=== PATIENT | female | born 2000 | race Caucasian/White ===

== ENCOUNTER 2021-10-11 19:34 | Observation (INO) | payer OTHER ==
[2021-10-11 19:59] VITALS: BMI 15.9
[2021-10-11] MEDS ORDERED: LACTATED RINGERS SOLUTION 1000 ML INFUS.BAG IV ONE ×2 (20:14→20:25)
[2021-10-11 20:24] LABS: HCG,QUALITATIVE URINE Negative
[2021-10-11 20:26] LABS: EPI CELLS >36 /uL (0-25.1); HYALINE CASTS 15 /uL (0-3.1); PH,URINE 7.5 (5.0-8.0); URINE APPEARANCE CLEAR; URINE BACTERIA 97 /uL (0-1359); URINE BILIRUBIN NEGATIVE (NEGATIVE); URINE COLOR YELLOW; URINE GLUCOSE (UA) NEGATIVE (NEGATIVE); URINE KETONE TRACE (NEGATIVE); URINE LEUK ESTERASE 1+ (NEGATIVE); URINE NITRITE NEGATIVE (NEGATIVE); URINE PROTEIN NEGATIVE (NEGATIVE); URINE RBC 10 /uL (0-23.9); URINE UROBILINOGEN 0.2 mg/dL (0.2-1.0); URINE WBC 56 /uL (0-25.8)
[2021-10-11] MEDS ORDERED: ACETAMINOPHEN 1000 MG/100 ML VIAL IVPB ONE (21:15)
[2021-10-11] MEDS ORDERED: ACETAMINOPHEN INJECTION 100 ML IVPB ONE (21:15)
[2021-10-11 21:19] LABS: BASO % 0.4 % (0-2.0); EOS % 0.6 % (0-4.5); HEMATOCRIT 38.5 % (32.4-45.2); HEMOGLOBIN 12.6 GM/dL (10.7-15.3); LYMPH % 8.8 % (8-40); MCH 26.9 pg (25.7-33.7); MCHC 32.8 g/dl (32.0-36.0); MONO % 5.5 % (3.8-10.2); NEUT % 84.7 % (42.8-82.8); PLATELET COUNT 276 10^3/uL (134-434); RDW 17.6 % (11.6-15.6)
[2021-10-11 21:30] LABS: CHLORIDE 105 mmol/L (98-107); SODIUM 138 mmol/L (136-145)
[2021-10-11 21:32] LABS: CALCIUM 9.1 mg/dL (8.5-10.1)
[2021-10-11 21:33] LABS: ALBUMIN 4.3 g/dl (3.4-5.0); ANION GAP 9 MMOL/L (8-16); BLOOD UREA NITROGEN 14.9 mg/dL (7-18); CO2 25 mmol/L (21-32); GLUCOSE,RANDOM 96 mg/dL (74-106)
[2021-10-11 21:36] LABS: CREATININE 0.8 mg/dL (0.55-1.3); SGOT/AST 16 U/L (15-37); SGPT/ALT 19 U/L (13-61)
[2021-10-11 21:37] LABS: TOT PROT 8.4 g/dl (6.4-8.2)
[2021-10-11 21:38] LABS: BILIRUBIN,TOTAL 0.5 mg/dL (0.2-1)
[2021-10-11 21:39] LABS: ALK PHOS 95 U/L (45-117); INR 1.21 (0.83-1.09); PROTHROMBIN TIME (PATIENT) 13.6 SEC (9.7-13.0)
[2021-10-11 21:41] LABS: ACTIVATED PTT 24.8 SECONDS (25.2-36.5)
[2021-10-12] MEDS ORDERED: CEFTRIAXONE 1 GM in DEXTROSE 5%-WATER - 50 ML IVPB ONE (00:14)
[2021-10-12 01:07] LABS: PHOSPHOROUS 3.6 mg/dL (2.5-4.9)
[2021-10-12] MEDS ORDERED: CEFTRIAXONE 1 GM/50 ML BAG ONE (01:34)
[2021-10-12] MEDS: SODIUM CHLORIDE 1,000 ML IV SCH ×2 (01:35→03:30)
[2021-10-12 02:19] LABS: URINE BARBITURATES NEGATIVE (NEGATIVE)
[2021-10-12 02:20] LABS: OPIATES, URI NEGATIVE (NEGATIVE); PHENCYCLIDINE,URINE NEGATIVE (NEGATIVE); URINE BENZODIAZEPINES NEGATIVE (NEGATIVE)
[2021-10-12 02:41] LABS: COCAINE, UR NEGATIVE (NEGATIVE); METHADONE, UR NEGATIVE (NEGATIVE); URINE AMPHETAMINES NEGATIVE (NEGATIVE)
[2021-10-12 08:02] LABS: BASO % 0.6 % (0-2.0); EOS % 0.7 % (0-4.5); HEMATOCRIT 32.5 % (32.4-45.2); HEMOGLOBIN 10.8 GM/dL (10.7-15.3); LYMPH % 14.2 % (8-40); MCH 26.9 pg (25.7-33.7); MCHC 33.1 g/dl (32.0-36.0); MEAN CELL VOLUME 81.3 fl (80-96); MEAN PLT VOLUME 10.1 fl (7.5-11.1); MONO % 9.6 % (3.8-10.2); NEUT % 74.9 % (42.8-82.8); PLATELET COUNT 224 10^3/uL (134-434); RBC 3.99 M/mm3 (3.60-5.2); RDW 17.5 % (11.6-15.6); WHITE BLOOD COUNT 5.5 K/mm3 (4.0-10.0)
[2021-10-12 08:20] LABS: CHLORIDE 111 mmol/L (98-107); SODIUM 140 mmol/L (136-145)
[2021-10-12 08:26] LABS: ANION GAP 8 MMOL/L (8-16); CALCIUM 8.3 mg/dL (8.5-10.1); CO2 21 mmol/L (21-32); GLUCOSE,RANDOM 78 mg/dL (74-106)
[2021-10-12 08:27] LABS: CHOLESTEROL 109 mg/dL (50-200); TRIGLYCERIDES 34 mg/dL (0-150)
[2021-10-12 08:28] LABS: CREATININE 0.7 mg/dL (0.55-1.3); PHOSPHOROUS 3.7 mg/dL (2.5-4.9); SGOT/AST 18 U/L (15-37); SGPT/ALT 16 U/L (13-61)
[2021-10-12 08:29] LABS: LDL CHOLESTEROL (ONLY SJRH) 43 mg/dL (5-100)
[2021-10-12 08:30] LABS: BILIRUBIN,TOTAL 0.4 mg/dL (0.2-1); HDL CHOLESTEROL 57 mg/dL (40-60)
[2021-10-12 09:22] LABS: ALK PHOS 65 U/L (45-117); TOT PROT 6.1 g/dl (6.4-8.2)
[2021-10-12] MEDS ORDERED: ENOXAPARIN NA (PORCINE) 40 MG/0.4 ML DISP.SYRIN SQ SCH (10:00)
[2021-10-12 12:54] VITALS: BP 128/69; PULSE 86; TEMP 98.1
== END 2021-10-12 12:54 | disposition home or self-care (01) ==
LOC: JER 19:34 → JERBED 23:27
PROVIDERS: ADMIT Internal Medicine; ATTEND Internal Medicine
PROC: 3E03329 Introduction of Other Anti-infective into Peripheral Vein, Percutaneous Approach (ICD-10-PCS; principal; 2021-10-11)
PROC: 3E033NZ Introduction of Analgesics, Hypnotics, Sedatives into Peripheral Vein, Percutaneous Approach (ICD-10-PCS; 2021-10-11)
PROC: 3E023GC Introduction of Other Therapeutic Substance into Muscle, Percutaneous Approach (ICD-10-PCS; 2021-10-11)
PROC: 3E0337Z Introduction of Electrolytic and Water Balance Substance into Peripheral Vein, Percutaneous Approach (ICD-10-PCS; 2021-10-11)
DX: R94.31 Abnormal electrocardiogram [ECG] [EKG] (principal); R55 Syncope and collapse; Z86.16 Personal history of COVID-19; Z29.9 Encounter for prophylactic measures, unspecified; R63.6 Underweight; Z68.1 Body mass index [BMI] 19.9 or less, adult
CPT/HCPCS: 36415; 70450-TC; 71046-TC-FY; 71275-TC; 80053; 80061; 80307; 81003; 82550; 82962; 83735; 84100; 84443; 84484; 84703; 85025; 85379; 85610; 85730; 86850; 86900; 86901; 93005; 93010; 93306-TC; 96361; 96365; 96372; 96375; 99285-25; C9803; G0378; J0131; Q9967; U0003; U0005

== ENCOUNTER 2022-09-08 14:06 | Emergency (ER) | payer OTHER ==
[2022-09-08 14:15] VITALS: BP 114/77; PULSE 96; RESP 18; TEMP 98.3; BMI 20.1
[2022-09-08] MEDS ORDERED: SUCRALFATE 1 GM TABLET (FP) PO ONE (14:50)
[2022-09-08] MEDS ORDERED: ONDANSETRON 4 MG/2 ML VIAL IVPUSH ONE (14:50)
[2022-09-08] MEDS ORDERED: MAG HYDROX/AL HYDROX/SIMETH -MYLANTA- ORAL SUSPENSION PO ONE (14:50)
[2022-09-08] MEDS ORDERED: ACETAMINOPHEN 1000 MG/100 ML BAG IVPB ONE (14:50)
[2022-09-08] MEDS ORDERED: FAMOTIDINE 20 MG/50 ML IVPB 20 MG/50 ML MG IVPB ONE ×2 (14:50→15:34)
[2022-09-08] MEDS ORDERED: LACTATED RINGERS SOLUTION 1000 ML INFUS.BAG IV ONE (15:04)
[2022-09-08] MEDS ORDERED: ONDANSETRON 4 MG/2 ML VIAL ONE (15:34)
[2022-09-08] MEDS ORDERED: SUCRALFATE 1 GM TABLET (FP) ONE (15:34)
[2022-09-08] MEDS ORDERED: ACETAMINOPHEN INJECTION 100 ML IVPB ONE (15:34)
[2022-09-08] MEDS ORDERED: MAG HYDROX/AL HYDROX/SIMETH 30 ML UNIT-DOSE CUP ONE (15:34)
[2022-09-08 16:59] LABS: BASO % 0.9 % (0-2.0); EOS % 4.1 % (0-4.5); HEMATOCRIT 38.8 % (32.4-45.2); HEMOGLOBIN 13.1 GM/dL (10.7-15.3); LYMPH % 41.4 % (8-40); MCH 29.5 pg (25.7-33.7); MCHC 33.8 g/dl (32.0-36.0); MEAN CELL VOLUME 87.1 fl (80-96); MEAN PLT VOLUME 10.6 fl (7.5-11.1); MONO % 10.7 % (3.8-10.2); NEUT % 42.9 % (42.8-82.8); PLATELET COUNT 386 10^3/uL (134-434); RBC 4.45 M/mm3 (3.60-5.2); RDW 13.3 % (11.6-15.6); WHITE BLOOD COUNT 5.8 K/mm3 (4.0-10.0)
[2022-09-08 17:03] LABS: HCG,QUALITATIVE URINE Negative
[2022-09-08 17:04] LABS: EPI CELLS >36 /uL (0-25.1); HYALINE CASTS 2 /uL (0-3.1); URINE APPEARANCE CLEAR; URINE BACTERIA 108 /uL (0-1359); URINE BILIRUBIN NEGATIVE (NEGATIVE); URINE COLOR YELLOW; URINE GLUCOSE (UA) NEGATIVE (NEGATIVE); URINE KETONE TRACE (NEGATIVE); URINE LEUK ESTERASE 1+ (NEGATIVE); URINE NITRITE NEGATIVE (NEGATIVE); URINE PROTEIN NEGATIVE (NEGATIVE); URINE RBC 15 /uL (0-23.9); URINE UROBILINOGEN 0.2 mg/dL (0.2-1.0); URINE WBC 88 /uL (0-25.8)
[2022-09-08 17:34] LABS: CALCIUM 9.2 mg/dL (8.5-10.1)
[2022-09-08 17:35] LABS: ALBUMIN 4.1 g/dl (3.4-5.0); BLOOD UREA NITROGEN 10.6 mg/dL (7-18); MAGNESIUM 2.2 mg/dL (1.8-2.4)
[2022-09-08 17:37] LABS: CREATININE 0.8 mg/dL (0.55-1.3)
[2022-09-08 17:38] LABS: PHOSPHOROUS 3.5 mg/dL (2.5-4.9)
[2022-09-08 17:39] LABS: BILIRUBIN,TOTAL 0.4 mg/dL (0.2-1); TOT PROT 7.7 g/dl (6.4-8.2)
== END 2022-09-08 18:33 | disposition home or self-care (01) ==
LOC: JER 14:06
PROC: 3E033NZ Introduction of Analgesics, Hypnotics, Sedatives into Peripheral Vein, Percutaneous Approach (ICD-10-PCS; principal; 2022-09-08)
PROC: 3E033GC Introduction of Other Therapeutic Substance into Peripheral Vein, Percutaneous Approach (ICD-10-PCS; 2022-09-08)
PROC: 3E033GC Introduction of Other Therapeutic Substance into Peripheral Vein, Percutaneous Approach (ICD-10-PCS; 2022-09-08)
DX: R11.2 Nausea with vomiting, unspecified (principal); R19.7 Diarrhea, unspecified
CPT/HCPCS: 0241U-QW; 36415; 80053; 81003; 83690; 83735; 84100; 84703; 85025; 99284-25

== ENCOUNTER 2023-05-04 22:24 | Emergency (ER) | payer OTHER ==
[2023-05-04 22:32] VITALS: BP 135/88; PULSE 100; RESP 16; TEMP 98.4; BMI 19.9
[2023-05-04] MEDS ORDERED: ACETAMINOPHEN 1000 MG/100 ML BAG IVPB ONE (23:41)
[2023-05-04] MEDS ORDERED: ACETAMINOPHEN INJECTION 100 ML IVPB ONE (23:58)
[2023-05-05 00:03] LABS: BASO % 0.7 % (0-2.0); EOS % 2.1 % (0-4.5); HEMATOCRIT 42.1 % (32.4-45.2); HEMOGLOBIN 13.7 GM/dL (10.7-15.3); LYMPH % 23.7 % (8-40); MCH 28.2 pg (25.7-33.7); MCHC 32.6 g/dl (32.0-36.0); MEAN CELL VOLUME 86.6 fl (80-96); MEAN PLT VOLUME 10.2 fl (7.5-11.1); MONO % 10.7 % (3.8-10.2); NEUT % 62.8 % (42.8-82.8); PLATELET COUNT 325 10^3/uL (134-434); RBC 4.87 M/mm3 (3.60-5.2); RDW 15.9 % (11.6-15.6); WHITE BLOOD COUNT 9.2 K/mm3 (4.0-10.0)
[2023-05-05 00:29] LABS: POTASSIUM 4.3 mmol/L (3.5-5.1)
[2023-05-05 00:31] LABS: CALCIUM 9.5 mg/dL (8.5-10.1)
[2023-05-05 00:32] LABS: ALBUMIN 4.1 g/dl (3.4-5.0)
[2023-05-05 00:35] LABS: CREATININE 1.1 mg/dL (0.55-1.3)
[2023-05-05 00:37] LABS: BILIRUBIN,TOTAL 0.2 mg/dL (0.2-1); TOT PROT 7.9 g/dl (6.4-8.2)
[2023-05-05] MEDS ORDERED: KETOROLAC TROMETHAMINE 15 MG/ML VIAL IVPUSH ONE (01:03)
[2023-05-05] MEDS ORDERED: KETOROLAC TROMETHAMINE 15 MG/ML VIAL ONE (01:04)
[2023-05-05] MEDS ORDERED: SODIUM CHLORIDE 0.9% 500 ML INFUS.BAG IV ONE (01:06)
== END 2023-05-05 01:54 | disposition home or self-care (01) ==
LOC: JER 22:24
PROC: 3E033NZ Introduction of Analgesics, Hypnotics, Sedatives into Peripheral Vein, Percutaneous Approach (ICD-10-PCS; principal; 2023-05-04)
PROC: 3E033GC Introduction of Other Therapeutic Substance into Peripheral Vein, Percutaneous Approach (ICD-10-PCS; 2023-05-05)
DX: R51.9 Headache, unspecified (principal); R42 Dizziness and giddiness; H53.8 Other visual disturbances; R06.02 Shortness of breath; R00.2 Palpitations; R63.0 Anorexia; H57.10 Ocular pain, unspecified eye
CPT/HCPCS: 36415; 70460-TC; 80053; 84703; 85025; 93005; 93010; 99285-25; Q9967

== ENCOUNTER 2023-06-13 08:46 | Emergency (ER) | payer OTHER ==
[2023-06-13 09:08] VITALS: BP 119/73; PULSE 77; RESP 18; TEMP 98.3; BMI 19.3
[2023-06-13] MEDS ORDERED: DEXAMETHASONE SOD PHOSPHATE 10 MG/1 ML VIAL IM ONE (09:48)
[2023-06-13] MEDS ORDERED: diphenhydrAMINE HCL 25 MG CAPSULE (FP) PO ONE ×2 (09:49→09:50)
[2023-06-13] MEDS ORDERED: DEXAMETHASONE SOD PHOSPHATE 10 MG/1 ML VIAL ONE (09:50)
== END 2023-06-13 11:10 | disposition home or self-care (01) ==
LOC: JER 08:46 → JERFT 08:46
PROC: 3E023GC Introduction of Other Therapeutic Substance into Muscle, Percutaneous Approach (ICD-10-PCS; principal; 2023-06-13)
DX: R21 Rash and other nonspecific skin eruption (principal); L50.9 Urticaria, unspecified; T78.40XA Allergy, unspecified, initial encounter
CPT/HCPCS: 99284-25; J1100

== ENCOUNTER 2024-06-18 16:26 | Emergency (ER) | payer OTHER ==
[2024-06-18 16:38] VITALS: BP 116/73; PULSE 77; RESP 18; TEMP 98.3; BMI 15.9
[2024-06-18] MEDS ORDERED: ACETAMINOPHEN INJECTION 100 ML ONE (17:25)
[2024-06-18] MEDS ORDERED: ONDANSETRON 4 MG/2 ML VIAL ONE (17:25)
[2024-06-18 17:29] LABS: BASO % 0.7 % (0-2.0); EOS % 4.8 % (0-4.5); HEMATOCRIT 40.2 % (32.4-45.2); HEMOGLOBIN 13.6 GM/dL (10.7-15.3); LYMPH % 38.9 % (8-40); MCH 30.5 pg (25.7-33.7); MCHC 33.8 g/dl (32.0-36.0); MEAN CELL VOLUME 90.2 fl (80-96); MEAN PLT VOLUME 9.9 fl (7.5-11.1); MONO % 8.1 % (3.8-10.2); NEUT % 47.5 % (42.8-82.8); PLATELET COUNT 273 10^3/uL (134-434); RBC 4.46 M/mm3 (3.60-5.2); WHITE BLOOD COUNT 6.5 K/mm3 (4.0-10.0)
[2024-06-18] MEDS: ACETAMINOPHEN 1000 MG/100 ML BAG IVPB ONE (17:35)
[2024-06-18] MEDS: SODIUM CHLORIDE 0.9% 500 ML INFUS.BAG IV ONE (17:35)
[2024-06-18] MEDS: ONDANSETRON 4 MG/2 ML VIAL IVPUSH ONE (17:35)
[2024-06-18] MEDS ORDERED: KETOROLAC TROMETHAMINE 30 MG/1 ML VIAL ONE (17:49)
[2024-06-18] MEDS: KETOROLAC TROMETHAMINE 30 MG/1 ML VIAL IVPUSH ONE (17:53)
[2024-06-18 17:54] LABS: POTASSIUM 4.3 mmol/L (3.5-5.1)
[2024-06-18 17:56] LABS: ALBUMIN 4.2 g/dl (3.4-5.0); BLOOD UREA NITROGEN 11.3 mg/dL (7-18); CALCIUM 9.5 mg/dL (8.5-10.1); MAGNESIUM 2.3 mg/dL (1.8-2.4)
[2024-06-18 17:59] LABS: CREATININE 0.9 mg/dL (0.55-1.3)
[2024-06-18 18:01] LABS: BILIRUBIN,TOTAL 0.4 mg/dL (0.2-1); TOT PROT 7.5 g/dl (6.4-8.2)
[2024-06-18 18:44] LABS: HIV INTERPRETATION NEGATIVE (NEGATIVE)
== END 2024-06-18 20:16 | disposition home or self-care (01) ==
LOC: JER 16:26
PROC: 3E033NZ Introduction of Analgesics, Hypnotics, Sedatives into Peripheral Vein, Percutaneous Approach (ICD-10-PCS; principal; 2024-06-18)
PROC: 3E0333Z Introduction of Anti-inflammatory into Peripheral Vein, Percutaneous Approach (ICD-10-PCS; 2024-06-18)
PROC: 3E033GC Introduction of Other Therapeutic Substance into Peripheral Vein, Percutaneous Approach (ICD-10-PCS; 2024-06-18)
DX: G43.909 Migraine, unspecified, not intractable, without status migrainosus (principal)
CPT/HCPCS: 36415; 70450-TC; 80053; 83735; 84703; 85025; 86803; 87389; 99284-25; J0131

== ENCOUNTER 2024-09-02 08:07 | Emergency (ER) | payer OTHER ==
[2024-09-02 08:14] VITALS: TEMP 97.9; BMI 16.9
[2024-09-02] MEDS: MECLIZINE HCL 25 MG TABLET (FP) PO ONE (09:23)
[2024-09-02] MEDS: ONDANSETRON 4 MG TABLET PO ONE (09:23)
[2024-09-02] MEDS ORDERED: METOCLOPRAMIDE HCL INJECTION 10 MG/2 ML VIAL ONE (09:28)
[2024-09-02] MEDS: SODIUM CHLORIDE 0.9% 500 ML INFUS.BAG IV ONE (09:55)
[2024-09-02] MEDS: METOCLOPRAMIDE HCL INJECTION 10 MG/2 ML VIAL IVPUSH ONE (09:55)
[2024-09-02 10:19] LABS: EPI CELLS 4 /uL (0-25.1); HCG,QUALITATIVE URINE Negative; HYALINE CASTS 0 /uL (0-3.1); PH,URINE 5.5 (5.0-8.0); URINE APPEARANCE CLEAR; URINE BACTERIA 9 /uL (0-1359); URINE BILIRUBIN NEGATIVE (NEGATIVE); URINE COLOR YELLOW; URINE GLUCOSE (UA) NEGATIVE (NEGATIVE); URINE KETONE NEGATIVE (NEGATIVE); URINE LEUK ESTERASE TRACE (NEGATIVE); URINE NITRITE NEGATIVE (NEGATIVE); URINE PROTEIN NEGATIVE (NEGATIVE); URINE RBC 144 /uL (0-23.9); URINE UROBILINOGEN 0.2 mg/dL (0.2-1.0); URINE WBC 11 /uL (0-25.8)
[2024-09-02 10:19] LABS: BASO % 0.5 % (0-2.0); EOS % 0.4 % (0-4.5); HEMATOCRIT 42.8 % (32.4-45.2); HEMOGLOBIN 14.4 GM/dL (10.7-15.3); LYMPH % 13.9 % (8-40); MCH 30.7 pg (25.7-33.7); MCHC 33.6 g/dl (32.0-36.0); MEAN CELL VOLUME 91.4 fl (80-96); MEAN PLT VOLUME 9.7 fl (7.5-11.1); MONO % 4.6 % (3.8-10.2); NEUT % 80.6 % (42.8-82.8); PLATELET COUNT 273 10^3/uL (134-434); RBC 4.68 M/mm3 (3.60-5.2); RDW 14.3 % (11.6-15.6); WHITE BLOOD COUNT 10.4 K/mm3 (4.0-10.0)
[2024-09-02 10:46] LABS: POTASSIUM 3.8 mmol/L (3.5-5.1)
[2024-09-02 10:58] LABS: ALBUMIN 4.2 g/dl (3.4-5.0); BLOOD UREA NITROGEN 9.9 mg/dL (7-18); CALCIUM 9.6 mg/dL (8.5-10.1)
[2024-09-02 11:01] LABS: CREATININE 0.9 mg/dL (0.55-1.3)
[2024-09-02 11:03] LABS: BILIRUBIN,TOTAL 0.7 mg/dL (0.2-1); TOT PROT 7.5 g/dl (6.4-8.2)
[2024-09-02 12:06] VITALS: BP 118/84; PULSE 85; RESP 16
== END 2024-09-02 11:46 | disposition home or self-care (01) ==
LOC: JER 08:07
PROC: 3E033GC Introduction of Other Therapeutic Substance into Peripheral Vein, Percutaneous Approach (ICD-10-PCS; principal; 2024-09-02)
PROC: 3E033GC Introduction of Other Therapeutic Substance into Peripheral Vein, Percutaneous Approach (ICD-10-PCS; 2024-09-02)
DX: R42 Dizziness and giddiness (principal); R11.2 Nausea with vomiting, unspecified; R10.9 Unspecified abdominal pain; Z20.822 Contact with and (suspected) exposure to COVID-19
CPT/HCPCS: 0241U-QW; 36415; 80053; 81003; 82962; 83735; 84703; 85025; 87086; 93005; 93010; 96374; 96375; 99284-25